=== PATIENT | female | born 1980 | race Two or more races ===

== ENCOUNTER 2017-04-11 05:02 | Inpatient (IN) | payer OTHER ==
[~2017-04-11] VITALS: Ht 170.2 cm; Wt 131.5 kg
[~2017-04-11 05:02] MED LIST: ACET-1718 PO; ACET500T68 PO; ACY200L PO; ACYC800T99 PO; CETI10CA8 PO; DOCU-416 PO; DOCU100T19 PO; HYDR-389 PO; IBU800 PO; IBUP600T22 PO; IBUP800T37 PO; IRON15TA PO; METH0.2T5 PO; MULTI VITAMIN PO; ONDA4TAB PO; OXYC-854 PO; PER PO; PREN-129 PO; SULF-198 PO
[2017-04-11] MEDS ORDERED: OXYTOCIN 30 UNIT/D5LR 500 ML 500 ML IV PRN ×3 (05:04→12:42)
[2017-04-11] MEDS ORDERED: FAMOTIDINE(*) 20MG/50ML PREMIX 50 ML IVPB PRN (05:04)
[2017-04-11] MEDS ORDERED: fentaNYL CITR 100 MCG/2 ML AMP IVP PRN (05:05)
[2017-04-11] MEDS ORDERED: LIDOCAINE/SOD BICARB 8.4% SYR SC PRN (05:05)
[2017-04-11] MEDS ORDERED: METOCLOPRAMIDE 10 MG/2 ML SDV IVP PRN (05:05)
[2017-04-11] MEDS ORDERED: TERBUTALINE SULF 1 MG/ML VIAL SUBQ PRN (05:05)
[2017-04-11] MEDS ORDERED: MISOPROSTOL 25 MCG CAP PV PRN (05:05)
[2017-04-11] MEDS ORDERED: cefOXitin/DEX(*) 2GM/50ML PREM 50 ML IVPB PRN (05:05)
[2017-04-11] MEDS ORDERED: LIDOCAINE 1% LOCAL 300 MG/30ML INJ PRN (05:05)
[2017-04-11 05:45] VITALS: BP 160/89; Ht 170.2 cm; Wt 131.5 kg
[2017-04-11] MEDS: LR(*) 1000 ML BAG 1,000 ML IV SCH ×2 (05:53→16:41)
[2017-04-11] MEDS: DLR(*) 1000 ML BAG 1,000 ML IV SCH ×2 (06:15→16:41)
[2017-04-11 06:36] LABS: PLATELET COUNT, AUTOMATED 273 K/uL (150-450)
[2017-04-11] MEDS ORDERED: PREN-127 PO (06:46)
[2017-04-11] MEDS ORDERED: OSE75 FT (06:51)
--- NOTE | 2017-04-11 08:36 | History & Physical ---
History of Present Illness Age of Patient: 37 : 5 Para or TPAL: 2021 EDC per LMP: Apr 17, 2017 Estimated Gestational Age: 39.1 Chief Complaint induction of labor History of Present Illness The patient is a 37 year old 5 para 2021 admitted at 39 1/7 weeks estimated gestational age with an estimated date of delivery 04/17/17. Patient is admitted for induction of labor at term. No vaginal bleeding. Good movement and occasional contractions. She was evaluated for active labor. She had an uncomplicated course. Her record was reviewed. History Allergies: Coded Allergies: Penicillins (Verified Allergy, Severe, RASH AND SHORTNESS OF BREATH, ) latex (Unverified Allergy, Mild, RED RASH AND ITCHING, 11/11/15) Family History: FH: HTN (hypertension) FATHER Siblings x3 FH: asthma Siblings x3 FH: type 2 diabetes mellitus FATHER Med Rec Home Meds Reported Medications Oseltamivir Phosphate (TAMIFLU) 75 Mg Cap, 75 MG FT, CAP 04/11/17 Vits W-Ca,Fe,Fa(<1MG) ( VITAMINS) 1 Each Tablet, 1 EACH PO DAILY, TAB 04/11/17 Acetaminophen (TYLENOL EXTRA STRENGTH) 500 Mg Tablet, 500 MG PO PRN, TAB 01/26/16 Cetirizine Hcl (ZYRTEC) 10 Mg Capsule, 10 MG PO QDAY, CAPSULE 04/14/15 Acyclovir (ACYCLOVIR) 800 Mg Tablet, 800 MG PO QDAY, #10 TAB 04/14/15 Discontinued Scripts Methylergonovine Maleate (METHYLERGONOVINE MALEATE) 0.2 Mg Tablet, 1 TAB PO Q6H , #6 TAB Prov:NILES ASNCHEZ MD 01/27/16 Ibuprofen (IBUPROFEN) 800 Mg Tablet, 1 TAB PO Q8H, #30 TAB Take with food every 8 hours. Prov:NILES SANCHEZ MD 01/27/16 Acetaminophen With Codeine # 3 (ACETAMINOPHEN-COD #3 TABLET) 1 Each Tablet, 1-2 EACH PO Q4H Y for PAIN, #30 TAB TAKE 1-2 TABLETS NEEDED FOR PAIN - NO CLOSER THAN EVERY 4 HOURS Prov:NILES SANCHEZ MD 01/27/16 Exam General Exam Vital Signs Vital Signs Date Time Temp Pulse Resp B/P (MAP) Pulse Ox O2 Delivery O2 Flow Rate FiO2 04/11/17 05:45 97.9 87 20 160/89 (112) 94 Room Air Cardiovascular: Regular Rate and Rhythm Respiratory: Clear to Auscultation Abdomen: Gravid - Non-Tender Extremities: No Edema Cervical Dialation: 1 (rn) Cervical Effacement (%): 50 Cervical Consistency: Moderate Cervical Position: Mid Station: -2 Presentation: Vertex Uterine Contractions(Q min): 5 Uterine Contraction Strength: Mild Fetus Heart Tones: 140 Heart Tone Variabilty: Moderate FHT Category: I Medical Decision Making Data Points Result Diagram: 04/11/1740 04/11/1740 Assessment and Plan Problems: (1) Hypertension during Assessment & Plan: mild elevation of blood pressure, improved, labs stable cytotec placed, will monitor for cervical change Copies to: NILES SANCHEZ MD, JOHN MD Apr 11, 2017 08:36
[2017-04-11] MEDS ORDERED: ceFAZolin(*) 2GM/D5W 50ML 50 ML IV ONE (10:00)
--- NOTE | 2017-04-11 12:45 | Labor Progress Note ---
Labor Subjective Progress Notes Subjective feeling contractions Labor Pain: Mild Labor Objective Vital Signs Vital Signs Date Time Temp Pulse Resp B/P (MAP) Pulse Ox O2 Delivery O2 Flow Rate FiO2 04/11/17 05:45 97.9 87 20 160/89 (112) 94 Room Air Cervical Dialation: 2 Cervical Effacement (%): 75 Cervical Consistency: Soft Cervical Position: Mid Station: -1 Presentation: Vertex Uterine Contractions(Q min): 5 Uterine Contraction Strength: Moderate Fetus Heart Tones: 130 FHT Category: I Other Result Diagram: 04/11/17 0540 04/11/17 0540 Assessment and Plan Problems: (1) Hypertension during Assessment & Plan: will augment with pitocin NILES SANCHEZ MD Apr 11, 2017 12:45
[2017-04-11] MEDS ORDERED: ceFAZolin(*) 1 GM VIAL 1 GM in NS(*) 0.9% 100 ML ADDVANT BAG 100 ML IVPB SCH ×2 (17:00→20:00)
--- NOTE | 2017-04-11 17:23 | Labor Progress Note ---
Labor Subjective Progress Notes Subjective FEELING CONTRACTIONS Labor Objective Vital Signs Vital Signs Date Time Temp Pulse Resp B/P (MAP) Pulse Ox O2 Delivery O2 Flow Rate FiO2 04/11/17 05:45 97.9 87 20 160/89 (112) 94 Room Air Cervical Dialation: 2.5 Cervical Effacement (%): 75 Cervical Consistency: Soft Cervical Position: Mid Station: -1 Presentation: Vertex Uterine Contractions(Q min): 3 Uterine Contraction Strength: Moderate Fetus Heart Tones: 130 FHT Category: I Other Result Diagram: 04/11/17 0540 04/11/17 0540 Assessment and Plan Problems: (1) Hypertension during Assessment & Plan: CAMPUZANO BALLOON PLACED FOR RIPENING. WILL MONITOR FOR CHANGE NILES SANCHEZ MD Apr 11, 2017 17:23
[2017-04-11] MEDS ORDERED: LIDO/EPI 2% MPF 1:200,000 20ML EPI PRN (17:45)
[2017-04-11] MEDS ORDERED: BUPIVACAINE 0.25% MPF INJ EPI PRN (17:45)
[2017-04-11] MEDS ORDERED: EPIDURAL KEYS XX PRN (17:45)
[2017-04-11] MEDS ORDERED: fentaNYL CITR 100 MCG/2 ML AMP IT PRN (17:45)
[2017-04-11] MEDS ORDERED: BUPIVACAINE 0.5% INJ 30ML VIAL EPI PRN (17:45)
[2017-04-11] MEDS ORDERED: LIDOCAINE/PF 2% 200MG/10ML AMP 200 MG/10 ML AMPUL EPI PRN (17:45)
[2017-04-11] MEDS ORDERED: FENTANYL/ROPIVACAINE 100 ML BAG EPI PRN (17:45)
--- NOTE | 2017-04-11 20:10 | Anesthesia OB Pre-Anes Eval ---
History of Present Illness Anesthesia Start Date: Apr 11, 2017 Anesthesia Start Time: 19:03 OB Anesthesia Diagnosis: gestational hypertension, induction - elective Current Complication: gestational hypertention EDC: Apr 17, 2017 : 5 Para: 2 Pain Ratin Result Diagram: 04/11/17 0540 04/11/17 0540 Height (Inches): 67.00 Weight (Pounds): 290 BMI Calculated: 45.42 Past Medical History Medical History: obesity, other (Chest Pain and dyspnea during first preg. later cleared) Surgical History: other (2 Previous laparoscopic procedures) Previous Anesthesia: general (woke up early per pt.), epidural (on first preg. failed to work) Attended Childbirth Classes?: No Hx Anesthesia Reactions: No Hx Family Anesthesia Reaction: No Past Complications: gestational hypertention, obesity Home Meds Active Scripts Ibuprofen (IBUPROFEN) 800 Mg Tablet, 1 TAB PO Q8H, #30 TAB 0 Refills Take with food every 8 hours. Prov:NILES SANCHEZ MD 04/11/17 Hydromorphone Hcl (HYDROMORPHONE HCL) 2 Mg Tablet, 2-4 MG PO Q4H for PAIN, #20 TAB 0 Refills Prov:NILES SANCHEZ MD 04/11/17 Reported Medications Oseltamivir Phosphate (TAMIFLU) 75 Mg Cap, 75 MG FT, CAP 04/11/17 Vits W-Ca,Fe,Fa(<1MG) ( VITAMINS) 1 Each Tablet, 1 EACH PO DAILY, TAB 04/11/17 Acetaminophen (TYLENOL EXTRA STRENGTH) 500 Mg Tablet, 500 MG PO PRN, TAB 01/26/16 Cetirizine Hcl (ZYRTEC) 10 Mg Capsule, 10 MG PO QDAY, CAPSULE 04/14/15 Acyclovir (ACYCLOVIR) 800 Mg Tablet, 800 MG PO QDAY, #10 TAB 04/14/15 Discontinued Scripts Methylergonovine Maleate (METHYLERGONOVINE MALEATE) 0.2 Mg Tablet, 1 TAB PO Q6H , #6 TAB Prov:NILES SANCHEZ MD 01/27/16 Ibuprofen (IBUPROFEN) 800 Mg Tablet, 1 TAB PO Q8H, #30 TAB Take with food every 8 hours. Prov:NLIES SANCHEZ MD 01/27/16 Acetaminophen With Codeine # 3 (ACETAMINOPHEN-COD #3 TABLET) 1 Each Tablet, 1-2 EACH PO Q4H Y for PAIN, #30 TAB TAKE 1-2 TABLETS NEEDED FOR PAIN - NO CLOSER THAN EVERY 4 HOURS Prov:NILES SANCHEZ MD 01/27/16 Allergies: Coded Allergies: Penicillins (Verified Allergy, Severe, RASH AND SHORTNESS OF BREATH, ) latex (Unverified Allergy, Mild, RED RASH AND ITCHING, 11/11/15) Anesthesia OB ROS Neurological: migraines/headaches, No seizures, No neuropathy, No other ENT: Denies Tooth caps, Denies Loose teeth, Denies Chipped teeth, Denies Dentures, Denies Bridges, Denies Retainers, Denies Veneers, Denies Implants, Denies Tongue ring, Denies Other Pulmonary: No asthma, No smoker (pks/day/yrs), No other Airway Class: ll Cardiovascular ROS: No edema, No arrhythmia, No other GI ROS: clear liquids Last Solids Date: Apr 11, 2017 Last Solids Time: 04:30 ROS: No Herpes, No STD(s), No Liver Disease, No Renal Disease, No Other Endocrine ROS: No diabetes, No gestational diabetes, No thyroid disorder, No other Musculoskeletal ROS: low back pain, No low back injury, No scoliosis, No other ASA Classification: 2 Assessment and Plan Anesthesia Plan: CSE Assessment Epidural anesthesia risks, complications and benefits explained to patient's satisfaction for labor and vaginal delivery and/or section.Epidural anesthesia risks, complications and benefits explained to patient's satisfaction for labor and vaginal delivery and/or section. Anesthesia Stop Day: Apr 11, 2017 Anesthesia Stop Time: 22:15 Epidural Catheter Removal: Removed Catheter Intact, Yes, Removed by: (Alexis Blood CRNA) Removal Date: Apr 11, 2017 Removal Time: 22:15 ALEXIS BLOOD CRNA Apr 11, 2017 20:10
--- NOTE | 2017-04-11 20:16 | Procedure Note ---
Anesthetic Placement Note Anesthesia Plan: CSE Permit for Anesthesia Signed: Yes Anesthesia Technique: Patient Sitting Anesthesia Prep: Chlorhexidine Interspace: L 3-4 Local Anesthetic: 1% Lidocaine Amount Local - cc's: 3 Anesthesia Needle: 17g Touhashley/Schliff Anesthesia Attempts: 1 Loss of Resistance: Normal Saline Depth of LOS (cm): 6 Epidural Needle Placement: No CSF, No Blood, No Parasthesia Intrathecal Needle: 27 Gauge Pencan Cerebral Spinal Fluid: Yes, Clear Catheter Insertion (cm): 13 Catheter Type: Schumacher - Spring Wound Epidural Dressing: Tegaderm, Tape Anesthesia Tray: Lot Number ([id number]), Expiration Date (12/17/2017), Reference Number ([id number]) Anesthesia Medications: Intrathecal Dose: mcg Fentanyl (25mcg), mg Spinal Bupivicaine (2.5mg) Epidural Test Dose: 1.5 Lido/Epi (1:200,000), Dose - mL (5ml), Time (1922), Negative Epidural Loading Dose: Dose - ml, Time Epidural Infusion: 0.2% Ropivicaine, With Fentanyl 2mcg/ml, Start Time: (1922) Epidural Pump Setting: Bolus Dose - mL (4), Lockout - Minutes (20), Maintenance Rate - mL/hr (8), Maximum per Hour - mL (8) Complications: None EDWIN BLOOD CRNA Apr 11, 2017 20:16
--- NOTE | 2017-04-11 21:04 | Labor Progress Note ---
Labor Subjective Progress Notes Subjective comfortable with epidural Labor Pain: Comfortable Labor Objective Vital Signs Vital Signs Date Time Temp Pulse Resp B/P (MAP) Pulse Ox O2 Delivery O2 Flow Rate FiO2 04/11/17 05:45 97.9 87 20 160/89 (112) 94 Room Air Cervical Dialation: 6 Cervical Effacement (%): 90 Cervical Consistency: Soft Cervical Position: Mid Station: 0 Presentation: Vertex Uterine Contractions(Q min): 3 Uterine Contraction Strength: Strong Fetus Heart Tones: 150 Heart Tone Variabilty: Moderate FHT Decelerations: Early FHT Category: II Other Result Diagram: 04/11/1740 04/11/1740 Assessment and Plan Problems: (1) Hypertension during (2) Active labor at term Assessment & Plan: arom clear fluid anticipate vaginal delivery NILES SANCHEZ MD Apr 11, 2017 21:04
[2017-04-11] MEDS ORDERED: HYDR2TAB4 PO (22:26)
[2017-04-11] MEDS ORDERED: IBUP800T37 PO (22:27)
--- NOTE | 2017-04-11 22:28 | OB/GYN Discharge Summary ---
Discharge Summary Reason for Hosp/Final Diag: (1) Hypertension during (2) Active labor at term (3) care following vaginal delivery Hospital Course & Plan: vaginal delivery on day 1, Pain controlled, Tolerating diet and activity. Baby . Normal lochia. Lates Vital Signs Vital Signs Date Time Temp Pulse Resp B/P (MAP) Pulse Ox O2 Delivery O2 Flow Rate FiO2 04/11/17 05:45 97.9 87 20 160/89 (112) 94 Room Air Weight (Pounds): 290 Result Diagram: 04/11/17 0540 04/11/1740 Condition: Improved Discharge: Home, Self Snf Meds Active Scripts Ibuprofen (IBUPROFEN) 800 Mg Tablet, 1 TAB PO Q8H, #30 TAB 0 Refills Take with food every 8 hours. Prov:NILES MARTINO MD 04/11/17 Hydromorphone Hcl (HYDROMORPHONE HCL) 2 Mg Tablet, 2-4 MG PO Q4H for PAIN, #20 TAB 0 Refills Prov:NILES MARTINO MD 04/11/17 Reported Medications Oseltamivir Phosphate (TAMIFLU) 75 Mg Cap, 75 MG FT, CAP 04/11/17 Vits W-Ca,Fe,Fa(<1MG) ( VITAMINS) 1 Each Tablet, 1 EACH PO DAILY, TAB 04/11/17 Acetaminophen (TYLENOL EXTRA STRENGTH) 500 Mg Tablet, 500 MG PO PRN, TAB 01/26/16 Cetirizine Hcl (ZYRTEC) 10 Mg Capsule, 10 MG PO QDAY, CAPSULE 04/14/15 Acyclovir (ACYCLOVIR) 800 Mg Tablet, 800 MG PO QDAY, #10 TAB 04/14/15 Discontinued Scripts Methylergonovine Maleate (METHYLERGONOVINE MALEATE) 0.2 Mg Tablet, 1 TAB PO Q6H , #6 TAB Prov:NILES MARTINO MD 01/27/16 Ibuprofen (IBUPROFEN) 800 Mg Tablet, 1 TAB PO Q8H, #30 TAB Take with food every 8 hours. Prov:NILES MARTINO MD 01/27/16 Acetaminophen With Codeine # 3 (ACETAMINOPHEN-COD #3 TABLET) 1 Each Tablet, 1-2 EACH PO Q4H Y for PAIN, #30 TAB TAKE 1-2 TABLETS NEEDED FOR PAIN - NO CLOSER THAN EVERY 4 HOURS Prov:NILES MARTINO MD 01/27/16 Follow up with: Dr. Martino [phone] Follow up in: 6 wks PP or PO Discharge Diet: As Tolerates Discharge Activity: Pelvic Rest Copies to: NILES MARTINO MD, JOHN MD Apr 11, 2017 22:28
[2017-04-11] MEDS ORDERED: HYDROmorphone HCL 2 MG TAB PO PRN (22:30)
[2017-04-11] MEDS ORDERED: GLYCERIN/WITCH HAZEL LEAF 1 PK TOP PRN (22:30)
[2017-04-11] MEDS ORDERED: LANOLIN OINT 7 GM TUBE TP PRN (22:30)
[2017-04-11] MEDS ORDERED: MAGNESIUM HYDROXIDE* 30ML UDCP PO PRN (22:30)
[2017-04-11] MEDS ORDERED: ACETAMINOPHEN 325 MG TAB PO PRN (22:30)
[2017-04-11] MEDS ORDERED: HYDROCORTISONE 2.5% CR 30GM TB PR PRN (22:30)
--- NOTE | 2017-04-11 22:36 | OB Delivery Note ---
Delivery Note Vaginal Delivery Type: Spont. Vaginal Delivery Delivery Date: Apr 11, 2017 Delivery Time: 22:06 Estimated Gestational Age(wks): 39.1 Delivery Anesthesia: Epidural Sex: Female Infant Weight (gms): 4030 Apgars: 1 Minute (8), 5 Minute (9) Repair Needed: Laceration, Superficial, Vaginal Estimated Blood Loss: 350 Notes: IOL HYPERTENSION, NORMAL LABS. SLOW PROGRESS AFTER CYTOTEC WAS PLACED, IN PM CAMPUZANO BALLOON PLACED INTRACERVICALLY. RECEIVED EPIDURAL PRIOR TO PLACEMENT. PIT AUGMENTATION. AROM, CLEAR FLUID, PROGRESSED TO COMPLETE PUSHED EFFECTIVELY. DELIVERED WITHOUT COMPLICATIONS. LACERATIONS REPAIRED WITH 3-0 VICRYL. . Towel Hemmer in Attendence: No Copies to: NILES SANCHEZ MD, JOHN MD Apr 11, 2017 22:36
[2017-04-11 23:30] VITALS: BP 125/56
[2017-04-12] MEDS: BENZOCAINE 20% 60 ML BTL TP PRN ×2 (00:40→20:38)
[2017-04-12] MEDS: IBUPROFEN 800 MG TAB PO SCH ×3 (00:41→16:43)
[2017-04-12] MEDS: DLR(*) 1000 ML BAG 1,000 ML IV SCH ×3 (01:04→20:49)
[2017-04-12 04:15] VITALS: BP 117/66
--- NOTE | 2017-04-12 07:30 | OB/GYN Progress Note ---
OB Subjective Progress Notes Subjective Pain controlled, Tolerating diet and activity. Baby . Normal lochia. GI: NEG Nausea : Voiding Well Pain: Mild OB Objective Physical Exam Vital Signs Date Time Temp Pulse Resp B/P (MAP) Pulse Ox O2 Delivery O2 Flow Rate FiO2 04/11/17 05:45 97.9 87 20 160/89 (112) 94 Room Air Cardiovascular: Regular Rate and Rhythm Respiratory: Clear to Auscultation Abdomen: Fundus Firm Extremities: No Edema Result Diagram: 04/12/17 0536 04/11/17 0540 Assessment and Plan Problems: (1) Hypertension during (2) Active labor at term (3) care following vaginal delivery Assessment & Plan: Pain controlled, Tolerating diet and activity. Baby . Normal lochia. NILES SANCHEZ MD Apr 12, 2017 07:30
[2017-04-12 08:40] VITALS: BP 123/71
[2017-04-12] MEDS: DOCUSATE CALCIUM 240 MG CAP PO SCH ×2 (08:40→20:39)
[2017-04-12] MEDS ORDERED: MULTIVITAMINS (PRENATAL) TAB PO SCH (09:00)
[2017-04-12] MEDS ORDERED: MEASLES,MUMP,RUBELLA VAC 0.5ML SUBQ ONE (10:00)
[2017-04-12] MEDS ORDERED: DIPHTH/TETANUS/ACEL. PERTUSSIS IM ONLY ONE (10:00)
[2017-04-12] MEDS ORDERED: INFLUENZA VIRUS VAC 0.5 ML SYR IM ONLY ONE (10:00)
[2017-04-12 13:00] VITALS: BP 125/69
--- NOTE | 2017-04-12 13:57 | Anesthesia Post Eval Note ---
Anesthesia Post Eval Note Stable Pt able to participate in Eval: Yes Cardiovascular Status: Satisfactory Respiratory Status: Satisfactory Pain Managment: Satisfactory PO Nausea/Vomiting: Satisfactory Temperature Management: Satisfactory Mental Status: Satisfactory, Alert, Oriented X3 Post-Op Hydration Status: Satisfactory, Tolerating PO Well, Voiding w/o Difficulty Anesthesia Type: CSE Anesthesia Tolerance: Well EDWIN BLOOD CRNA Apr 12, 2017 13:57
[2017-04-12 17:35] VITALS: BP 117/62
[2017-04-12 19:40] VITALS: BP 137/72
== END 2017-04-12 23:00 | disposition home or self-care (01) | DRG 774 ==
LOC: OB 05:02
PROVIDERS: ADMIT Obstetrics & Gynecology; ATTEND Obstetrics & Gynecology
PROC: 10E0XZZ Delivery of Products of Conception, External Approach (ICD-10-PCS; principal; 2017-04-11)
PROC: 0HQ9XZZ Repair Perineum Skin, External Approach (ICD-10-PCS; 2017-04-11)
PROC: 3E0P7GC Introduction of Other Therapeutic Substance into Female Reproductive, Via Natural or Artificial Opening (ICD-10-PCS; 2017-04-11)
PROC: 10907ZC Drainage of Amniotic Fluid, Therapeutic from Products of Conception, Via Natural or Artificial Opening (ICD-10-PCS; 2017-04-11)
DX: O13.4 Gestational [pregnancy-induced] hypertension without significant proteinuria, complicating childbirth (principal); O98.32 Other infections with a predominantly sexual mode of transmission complicating childbirth; Z68.42 Body mass index [BMI] 45.0-49.9, adult; O99.214 Obesity complicating childbirth; O70.0 First degree perineal laceration during delivery; Z3A.39 39 weeks gestation of pregnancy; E66.9 Obesity, unspecified; N80.9 Endometriosis, unspecified; J30.1 Allergic rhinitis due to pollen; Z88.0 Allergy status to penicillin; Z91.040 Latex allergy status; Z86.19 Personal history of other infectious and parasitic diseases; Z82.49 Family history of ischemic heart disease and other diseases of the circulatory system; Z83.3 Family history of diabetes mellitus; A63.0 Anogenital (venereal) warts; O99.52 Diseases of the respiratory system complicating childbirth; O99.89 Other specified diseases and conditions complicating pregnancy, childbirth and the puerperium
CPT/HCPCS: 36415; 81001; 82040; 82247; 82310; 82374; 82435; 82565; 82570; 82947; 83615; 84075; 84132; 84155; 84156; 84295; 84450; 84460; 84520; 84550; 85025; 85027; 85461; 86850; 86870; 86900; 86901; A4344; J0690; J2590; J2791; J3010; J7050; J7120; S0020

== ENCOUNTER 2017-04-14 10:23 | Emergency (ER) | payer OTHER ==
[2017-04-11 05:45] VITALS: Ht 170.2 cm; Wt 131.5 kg
[~2017-04-14] VITALS: Ht 170.2 cm; Wt 131.5 kg
[~2017-04-14 10:23] MED LIST changes: +HYDR2TAB4 PO; +OSE75 FT; +PREN-127 PO
--- NOTE | 2017-04-14 10:39 | ER Report ---
History and Physical Time Seen By : 10:36 Hx. of Stated Complaint: pt c/o CP which radiates into the back. She denies SOB. Had normal vaginal delivery Monday night. HPI/ROS CHIEF COMPLAINT: Elevated blood pressure HISTORY OF PRESENT ILLNESS: Patient is a 37-year-old female who is a who is day #3 from a spontaneous uncomplicated vaginal delivery at term. She was seen in follow-up OB clinic because she started feeling nauseous yesterday and was having some back pain that radiated anteriorly to the front of the chest this morning. She has a prior history of hypertension and preeclampsia so she was concerned that that may be going on. Her blood pressure at the [facility] was reported to be 170/118. Upon arrival to the emergency department she is currently 129/96. She denies any nausea but does report some chest discomfort. She denies vaginal discharge or pelvic pain. She denies headache. She denies fevers or chills. She denies currently any nausea vomiting or diarrhea. REVIEW OF SYSTEMS: Constitutional: No fever, no chills. Eyes: No discharge. ENT: No sore throat. Cardiovascular: Chest pain, no palpitations Respiratory: No cough, no shortness of breath. Gastrointestinal: No abdominal pain, no vomiting. Genitourinary: No hematuria. Musculoskeletal: No back pain. Skin: No rashes. Neurological: No headache. Allergies: Coded Allergies: Penicillins (Verified Allergy, Severe, RASH AND SHORTNESS OF BREATH, ) latex (Unverified Allergy, Mild, RED RASH AND ITCHING, 11/11/15) Home Meds Active Scripts Ibuprofen (IBUPROFEN) 800 Mg Tablet, 1 TAB PO Q8H, #30 TAB 0 Refills Take with food every 8 hours. Prov:NILES MARTINO MD 04/11/17 Hydromorphone Hcl (HYDROMORPHONE HCL) 2 Mg Tablet, 2-4 MG PO Q4H for PAIN, #20 TAB 0 Refills Prov:NILES MARTINO MD 04/11/17 Reported Medications Oseltamivir Phosphate (TAMIFLU) 75 Mg Cap, 75 MG FT, CAP 04/11/17 Vits W-Ca,Fe,Fa(<1MG) ( VITAMINS) 1 Each Tablet, 1 EACH PO DAILY, TAB 04/11/17 Acetaminophen (TYLENOL EXTRA STRENGTH) 500 Mg Tablet, 500 MG PO PRN, TAB 01/26/16 Cetirizine Hcl (ZYRTEC) 10 Mg Capsule, 10 MG PO QDAY, CAPSULE 04/14/15 Acyclovir (ACYCLOVIR) 800 Mg Tablet, 800 MG PO QDAY, #10 TAB 04/14/15 Discontinued Scripts Methylergonovine Maleate (METHYLERGONOVINE MALEATE) 0.2 Mg Tablet, 1 TAB PO Q6H , #6 TAB Prov:NILES MARTINO MD 01/27/16 Ibuprofen (IBUPROFEN) 800 Mg Tablet, 1 TAB PO Q8H, #30 TAB Take with food every 8 hours. Prov:NILES MARTINO MD 01/27/16 Acetaminophen With Codeine # 3 (ACETAMINOPHEN-COD #3 TABLET) 1 Each Tablet, 1-2 EACH PO Q4H Y for PAIN, #30 TAB TAKE 1-2 TABLETS NEEDED FOR PAIN - NO CLOSER THAN EVERY 4 HOURS Prov:NILES MARTINO MD 01/27/16 Past Medical/Surgical History Prior history of preeclampsia Hx Smoking: No Smoking Status: Never Smoker Exposure to Second Hand Smoke?: No Hx Substance Use Disorder: No Hx Alcohol Use: Yes Constitutional Vital Sign - Last 24 Hours 04/14/17 04/14/17 04/14/17 04/14/17 10:30 10:31 11:30 12:00 Temp 97.7 Pulse 86 74 80 79 Resp 17 20 21 11 B/P (MAP) 129/96 (107) 147/82 121/78 (92) 128/74 (92) Pulse Ox 96 94 94 93 04/14/17 12:30 Pulse 77 Resp 20 B/P (MAP) 134/92 (106) Pulse Ox 92 Physical Exam General/Constitutional: Patient is awake, alert, nontoxic and in no acute respiratory distress. Head: Normocephalic and atraumatic. Eyes: Conjunctival clear, Pupils are equal and reactive to light. Ears:External canals are clear. Tympanic membranes are clear with normal landmarks and light reflex. Nares: No rhinorrhea or bleeding. Turbinates are pink and moist. Oropharyngeal: Mucous membranes are moist. There is no pharyngeal erythema or exudate. Neck: Supple, no adenopathy. Cardiovascular: Heart is regular rate and rhythm without audible murmurs, rubs or gallops. Pulmonary: Lungs are clear to auscultation bilaterally. There are no wheezes, rales, or rhonchi. Chest rise is symmetrical Abdomen: Soft, nontender, no guarding or peritoneal signs. Extremities: No gross deformities, No peripheral cyanosis. Able to move all 4 extremities. Neuro: Alert and oriented X3, Cranial nerves 2 thru 12 are intact and symmetrical. Patient has normal gait. Skin: No rashes, skin is warm dry and well perfused. Medical Decision Making Data Points Result Diagram: 04/14/17 1040 04/14/17 1040 Laboratory Hematology Test 04/14/17 10:40 04/14/17 11:10 Red Blood Count 3.80 M/uL (4.17-5.56) Mean Corpuscular Volume 83.3 fL (80.0-96.0) Mean Corpuscular Hemoglobin 27.4 pg (26.0-33.0) Mean Corpuscular Hemoglobin Concent 32.9 g/dL (32.0-36.0) Red Cell Distribution Width 16.1 % (11.5-14.5) Mean Platelet Volume 8.4 fL (7.2-11.1) Neutrophils (%) (Auto) 77.7 % (39.4-72.5) Lymphocytes (%) (Auto) 14.7 % (17.6-49.6) Monocytes (%) (Auto) 5.2 % (4.1-12.4) Eosinophils (%) (Auto) 1.8 % (0.4-6.7) Basophils (%) (Auto) 0.6 % (0.3-1.4) Nucleated RBC Relative Count (auto) 0.0 /100WBC Neutrophils # (Auto) 6.5 K/uL (2.0-7.4) Lymphocytes # (Auto) 1.2 K/uL (1.3-3.6) Monocytes # (Auto) 0.4 K/uL (0.3-1.0) Eosinophils # (Auto) 0.2 K/uL (0.0-0.5) Basophils # (Auto) 0.1 K/uL (0.0-0.1) Nucleated RBC Absolute Count (auto) 0.00 K/uL Peripheral Blood Smear No Y/N Sodium Level 137 mmol/L (137-145) Potassium Level 3.9 mmol/L (3.5-5.0) Chloride Level 105 mmol/L (98-107) Carbon Dioxide Level 23 mmol/L (22-31) Blood Urea Nitrogen 9 mg/dl (7-18) Creatinine 0.90 mg/dl (0.52-1.04) Glomerular Filtration Rate Calc > 60.0 Random Glucose 77 mg/dl (75-110) Uric Acid 5.4 mg/dl (2.5-7.5) Calcium Level 8.8 mg/dl (8.4-10.2) Total Bilirubin 0.4 mg/dl (0.2-1.3) Aspartate Amino Transf (AST/SGOT) 26 U/L (0-35) Alanine Aminotransferase (ALT/SGPT) 29 U/L (0-56) Alkaline Phosphatase 165 U/L (0-126) Lactate Dehydrogenase 539 U/L (0-590) Troponin I < 0.012 ng/ml B-Type Natriuretic Peptide 266 pg/ml (0-100) Total Protein 5.9 gm/dl (6.3-8.2) Albumin 3.0 g/dl (3.5-5.0) Urine Color Colorless Urine Clarity Clear Urine pH 7.0 pH (4.8-9.5) Urine Specific Oak 1.003 Urine Protein Negative mg/dL (NEGATIVE) Urine Glucose (UA) Negative mg/dL (NEGATIVE) Urine Ketones Negative mg/dL (NEGATIVE) Urine Blood Small (NEGATIVE) Urine Nitrite Negative (NEGATIVE) Urine Bilirubin Negative (NEGATIVE) Urine Urobilinogen Negative mg/dL (0.2-1.9) Urine Leukocyte Esterase Negative (NEGATIVE) Urine RBC <1 /HPF (0-2/HPF) Urine WBC None /HPF (0-5/HPF) Urine Squamous Epithelial Cells Few /LPF (NONE-FEW) Urine Transitional Epithelial Cells Few /LPF (NONE-FEW) Urine Bacteria Negative /HPF (NONE-FEW) Urine Mucus None /HPF (NONE-FEW) Urine Random Creatinine 20.3 mg/dl Chemistry Test 04/14/17 10:40 04/14/17 11:10 White Blood Count 8.4 k/uL (4.5-11.0) Red Blood Count 3.80 M/uL (4.17-5.56) Hemoglobin 10.4 g/dL (12.0-16.0) Hematocrit 31.7 % (34.0-47.0) Mean Corpuscular Volume 83.3 fL (80.0-96.0) Mean Corpuscular Hemoglobin 27.4 pg (26.0-33.0) Mean Corpuscular Hemoglobin Concent 32.9 g/dL (32.0-36.0) Red Cell Distribution Width 16.1 % (11.5-14.5) Platelet Count 248 K/uL (150-450) Mean Platelet Volume 8.4 fL (7.2-11.1) Neutrophils (%) (Auto) 77.7 % (39.4-72.5) Lymphocytes (%) (Auto) 14.7 % (17.6-49.6) Monocytes (%) (Auto) 5.2 % (4.1-12.4) Eosinophils (%) (Auto) 1.8 % (0.4-6.7) Basophils (%) (Auto) 0.6 % (0.3-1.4) Nucleated RBC Relative Count (auto) 0.0 /100WBC Neutrophils # (Auto) 6.5 K/uL (2.0-7.4) Lymphocytes # (Auto) 1.2 K/uL (1.3-3.6) Monocytes # (Auto) 0.4 K/uL (0.3-1.0) Eosinophils # (Auto) 0.2 K/uL (0.0-0.5) Basophils # (Auto) 0.1 K/uL (0.0-0.1) Nucleated RBC Absolute Count (auto) 0.00 K/uL Peripheral Blood Smear No Y/N Glomerular Filtration Rate Calc > 60.0 Uric Acid 5.4 mg/dl (2.5-7.5) Calcium Level 8.8 mg/dl (8.4-10.2) Total Bilirubin 0.4 mg/dl (0.2-1.3) Aspartate Amino Transf (AST/SGOT) 26 U/L (0-35) Alanine Aminotransferase (ALT/SGPT) 29 U/L (0-56) Alkaline Phosphatase 165 U/L (0-126) Lactate Dehydrogenase 539 U/L (0-590) Troponin I < 0.012 ng/ml B-Type Natriuretic Peptide 266 pg/ml (0-100) Total Protein 5.9 gm/dl (6.3-8.2) Albumin 3.0 g/dl (3.5-5.0) Urine Color Colorless Urine Clarity Clear Urine pH 7.0 pH (4.8-9.5) Urine Specific Oak 1.003 Urine Protein Negative mg/dL (NEGATIVE) Urine Glucose (UA) Negative mg/dL (NEGATIVE) Urine Ketones Negative mg/dL (NEGATIVE) Urine Blood Small (NEGATIVE) Urine Nitrite Negative (NEGATIVE) Urine Bilirubin Negative (NEGATIVE) Urine Urobilinogen Negative mg/dL (0.2-1.9) Urine Leukocyte Esterase Negative (NEGATIVE) Urine RBC <1 /HPF (0-2/HPF) Urine WBC None /HPF (0-5/HPF) Urine Squamous Epithelial Cells Few /LPF (NONE-FEW) Urine Transitional Epithelial Cells Few /LPF (NONE-FEW) Urine Bacteria Negative /HPF (NONE-FEW) Urine Mucus None /HPF (NONE-FEW) Urine Random Creatinine 20.3 mg/dl Urinalysis Test 04/14/17 11:10 Urine Color Colorless Urine Clarity Clear Urine pH 7.0 pH (4.8-9.5) Urine Specific Oak 1.003 Urine Protein Negative mg/dL (NEGATIVE) Urine Glucose (UA) Negative mg/dL (NEGATIVE) Urine Ketones Negative mg/dL (NEGATIVE) Urine Blood Small (NEGATIVE) Urine Nitrite Negative (NEGATIVE) Urine Bilirubin Negative (NEGATIVE) Urine Urobilinogen Negative mg/dL (0.2-1.9) Urine Leukocyte Esterase Negative (NEGATIVE) Urine RBC <1 /HPF (0-2/HPF) Urine WBC None /HPF (0-5/HPF) Urine Squamous Epithelial Cells Few /LPF (NONE-FEW) Urine Transitional Epithelial Cells Few /LPF (NONE-FEW) Urine Bacteria Negative /HPF (NONE-FEW) Urine Mucus None /HPF (NONE-FEW) Urine Random Creatinine 20.3 mg/dl EKG/Imaging EKG Interpretation EKG shows normal sinus rhythm no significant ST segment or T-wave abnormalities Imaging Chest x-ray unremarkable ED Course/Re-evaluation ED Course 04/14/2017 10:56:20 am Patient referred to the emergency department by Dr. Martino who is the on-call OB/ TRANSMISSION REPAIRER for evaluation of possible preeclampsia. Patient found to have a blood pressure of essentially 170/120 in the office. Here in the emergency department her blood pressure without treatment has significantly improved to 129/96. Plan will be preeclamptic workup to include LDH CBC CMP and urinalysis looking for protein uric acid and LDH. We'll also add troponin EKG and brain natural peptide to identify cardiac cause for pain. Disposition pending workup 04/14/2017 12:23:[address] Martino who is on-call for HEAD CORRECTION OFFICER history physical exam all pertinent lab data and ER course were reviewed. No evidence for preeclampsia at this visit. Patient will be started on Procardia 30 mg XL of the prescription will be written by Dr. Martino's office. He will also schedule follow-up appointment in 1 week for her to be rechecked at that time. Re-evaluation 04/14/2017 12:14:04 pm blood pressure currently 128/74 Decision to Disposition Date: Apr 14, 2017 Decision to Disposition Time: 12:23 Depart Departure Latest Vital Signs Vital Signs Date Time Temp Pulse Resp B/P (MAP) Pulse Ox O2 Delivery O2 Flow Rate FiO2 04/14/17 12:30 77 20 134/92 (106) 92 04/14/17 10:31 97.7 Impression: Primary Impression: Hypertension Condition: Improved Disposition: HOME OR SELF-CARE Referrals: NILES MARTINO MD (PCP) 1 Week Patient Instructions: Hypertension (DC) Additional Instructions: Dr. Martino will follow you up in approximately one week time. His office will call in a prescription for Procardia which she should take as directed until following up with Dr. Martino in approximately one week. Problem Qualifiers Primary Impression: Hypertension Hypertension type: unspecified Qualified Codes: I10 - Essential (primary) hypertension DANY CARMONA MD Apr 14, 2017 10:39
--- NOTE | 2017-04-14 10:48 | EKG ---
FACILITY: [facility] [place] PATIENT NAME: CECY CANTU : [id number] MR: [id number] V: [id number] EXAM DATE: ORDERING PHYSICIAN: DANY CARMONA TECHNOLOGIST: NAJMA Ornelas Reason : CP Blood Pressure : / mmHG Vent. Rate : 078 BPM Atrial Rate : 078 BPM P-R Int : 160 ms QRS Dur : 076 ms QT Int : 370 ms P-R-T Axes : 054 047 056 degrees QTc Int : 421 ms Normal sinus rhythm Cannot rule out Anterior infarct , age undetermined Abnormal ECG Confirmed by NILES VANESSA ([id number]) on 04/16/2017 8:55:50 AM Referred By: KRISTINE Confirmed By:NILES VANESSA
[2017-04-14 10:56] LABS: PLATELET COUNT, AUTOMATED 248 K/uL (150-450)
[2017-04-14 12:30] VITALS: BP 134/92
--- NOTE | 2017-04-14 12:53 | RADIOLOGY IMAGING REPORT ---
FACILITY: [facility] PATIENT NAME: Dev Faria : 1980 MR: [id number] V: [id number] EXAM DATE: ORDERING PHYSICIAN: DANY CARMONA TECHNOLOGIST: Location: [facility] Patient: Dev Faria : 1980 Visit/Account:[id number] Date of Sevice: 04/14/2017 Examination: CHEST PA AND LAT Comparison: 02/03/2017 History: Chest pain. Findings: Cardiac and hilar contour size is within normal limits. No consolidation, nodule, or peribr onchial inflammation. No pneumothorax, edema, or effusion. Osseous structures are intact. IMPRESSION: No evidence of acute cardiopulmonary disease. Report Dictated By: Paul Samuels MD at 04/14/2017 12:45 PM Report E-Signed By: Paul Samuels MD at 04/14/2017 12:47 PM WSN:[id number]
== END 2017-04-14 12:30 | disposition home or self-care (01) ==
LOC: ER 10:24
DX: I10 Essential (primary) hypertension (principal)
CPT/HCPCS: 71046; 81001; 82570; 83615; 83880; 84484; 84550; 85025; 93005; 99284; A4353; 82040; 82247; 82310; 82374; 82435; 82565; 82947; 84075; 84132; 84155; 84295; 84450; 84460; 84520

== ENCOUNTER → 2018-04-05 | Outpatient (CLI) | payer OTHER ==
[2017-04-11 05:45] VITALS: BMI 45.4
--- NOTE | 2018-04-05 13:50 | RADIOLOGY IMAGING REPORT ---
[place] [facility] [place]: Dev Faria : 1980 MR: [id number] V: [id number] EXAM DATE: ORDERING PHYSICIAN: BOBBY SCOTT TECHNOLOGIST: Location: [facility] Patient: Dev Faria : 1980 Visit/Account:[id number] Date of Sevice: 04/05/2018 MR BRAIN/BRAIN STEM W/O CON Comparisons: None. Additional pertinent history: Chronic migraines TECHNIQUE: Multiplanar, multisequence brain MRI was performed without gadolinium contrast. FINDINGS: Sagittal midline structures and craniocervical junction: Negative. Midline shift: None. Ventricles: Negative. Brain parenchyma: Diffusion weighted imaging: Negative. Gradient sequence: Negative. T2 weighted FLAIR images: Negative. Extra-axial spaces: Negative. Dural venous sinuses and major arterial flow voids: Negative. Mastoid air cells and paranasal sinuses: Negative. Surrounding soft tissues and orbits: Negative. Impression: Normal brain MRI without contrast. Report Dictated By: Drake Wolf MD at 04/05/2018 1:43 PM Report E-Signed By: Drake Wolf MD at 04/05/2018 1:45 PM [id number]
== END ==
LOC: MRI 01:06
PROVIDERS: ATTEND Psychiatry & Neurology Neurology
DX: G43.701 Chronic migraine without aura, not intractable, with status migrainosus (principal); R20.9 Unspecified disturbances of skin sensation
CPT/HCPCS: 70551